=== PATIENT | male | born 1960 | race Two or more races ===

== ENCOUNTER 2022-10-15 11:24 | Emergency (ER) | payer OTHER ==
[~2022-10-15] VITALS: Ht 172.7 cm; Wt 115.0 kg
[2022-10-15 11:46] VITALS: BP 132/67
[2022-10-15] MEDS ORDERED: ACETAMINOPHEN 500 MG TAB PO ONE (12:15)
[2022-10-15] MEDS ORDERED: IBUP800T27 PO (12:54)
[2022-10-15] MEDS ORDERED: METH750T22 PO (12:54)
== END 2022-10-15 12:56 | disposition home or self-care (01) ==
LOC: ER 11:24
DX: S23.41XA Sprain of ribs, initial encounter (principal); S46.911A Strain of unspecified muscle, fascia and tendon at shoulder and upper arm level, right arm, initial encounter; I10 Essential (primary) hypertension; W01.0XXA Fall on same level from slipping, tripping and stumbling without subsequent striking against object, initial encounter; Y93.89 Activity, other specified; Y92.89 Other specified places as the place of occurrence of the external cause; Y99.8 Other external cause status
CPT/HCPCS: 71101; 73030